=== PATIENT | male | born 1955 | race Caucasian/White ===

== ENCOUNTER 2018-01-21 07:09 | Outpatient (CLI) | payer OTHER | END 2018-01-21 07:26 | disposition home or self-care (01) | LOC: RX STUDY 07:09 | DX: R13.19 Other dysphagia (principal) ==

== ENCOUNTER 2019-10-25 11:10 | Outpatient (CLI) | payer OTHER | END 2019-10-25 11:23 | disposition home or self-care (01) | LOC: RX STUDY 11:10 | PROVIDERS: ATTEND Internal Medicine Endocrinology, Diabetes & Metabolism | DX: R13.19 Other dysphagia (principal) ==